=== PATIENT | male | born 2000 | race Caucasian/White ===

== ENCOUNTER 2023-10-30 11:56 | Emergency (ER) | payer SELFPAY ==
[~2023-10-30] VITALS: Ht 165.1 cm; Wt 91.9 kg
[2023-10-30 13:06] LABS: Basophils # (auto) 0.1 10 ^3/uL (0-0.2); Basophils % (auto) 0.7 % (0.0-2.0); Eosinophils # (auto) 0.5 10 ^3/uL (0-0.8); Eosinophils % (auto) 6.7 % (0.0-7.0); Hemoglobin 16.2 g/dL (13.5-17.5); Lymphocytes # (auto) 1.3 10 ^3/uL (0.4-5.4); Lymphocytes % (auto) 17.4 % (10.0-50.0); Mean Corpuscular Hemoglobin 29.2 pg (28.0-32.0); Mean Corpuscular Hgb Conc. 34.5 g/dL (32.0-36.0); Mean Corpuscular Volume 84.8 fL (80.0-100.0); Monocytes # (auto) 0.6 10 ^3/uL (0-1.3); Monocytes % (auto) 8.4 % (0.0-12.0); Neutrophils # (auto) 5.1 10 ^3/uL (1.6-8.6); Neutrophils % (auto) 66.8 % (37.0-80.0); Nucleated Red Blood Cells % 0.6 %; Red Blood Cells 5.54 10^6/uL (4.5-5.90); Red Cell Distribution Width 13.5 % (11.8-14.3); White Blood Cell 7.6 10^3/uL (4.4-10.8)
[2023-10-30 13:14] LABS: Alanine Aminotransferase 26 U/L (7-40); Alkaline Phosphatase 64 U/L (46-116); Anion Gap 4 (5-15); Aspartate Aminotransferase 18 U/L (13-40); BUN/Creatinine Ratio 11.6 (10.0-20.0); Bilirubin, Total 0.6 mg/dL (0.2-1.0); Blood Urea Nitrogen 10 mg/dL (9-23); Calcium 10.8 mg/dL (8.7-10.4); Carbon Dioxide 30 mmol/L (20-30); Chloride 107 mmol/L (98-107); Glucose 97 mg/dL (74-106); Lipase 37 U/L (12-53); Potassium 4.2 mmol/L (3.5-5.1); Sodium 141 mmol/L (136-145); Total Protein 7.6 g/dL (5.7-8.2)
[2023-10-30 13:26] LABS: INR 1.18 (0.9-1.15); Prothrombin Time 12.4 sec (9.3-11.8)
[2023-10-30] MEDS ORDERED: HYD25TP PR (15:37)
[2023-10-30] MEDS ORDERED: DOCU-94 PO (15:37)
[2023-10-30 16:08] VITALS: BP 148/87; PULSE 61; RESP 16; TEMP 98.4; O2SAT 98
== END 2023-10-30 16:13 | disposition home or self-care (01) ==
LOC: ER 11:59
DX: K64.4 Residual hemorrhoidal skin tags (principal); Z79.899 Other long term (current) drug therapy
CPT/HCPCS: 36415; 74176; 80053; 83605; 83690; 84484; 85025; 85610; 85730; 87040

== ENCOUNTER 2023-11-11 07:07 | Emergency (ER) | payer OTHER ==
[~2023-11-11] VITALS: Ht 165.1 cm; Wt 90.0 kg
[~2023-11-11 07:07] MED LIST: DOCU-94 PO; HYD25TP PR
[2023-11-11] MEDS ORDERED: MECL25CH38 PO (09:13)
[2023-11-11 10:22] LABS: Urine Bacteria None Seen /hpf (None Seen)
[2023-11-11 10:42] VITALS: BP 122/72; PULSE 54; RESP 18; TEMP 97.9; O2SAT 99
[2023-11-11 10:54] LABS: Urine Blood Negative /uL (Negative); Urine Clarity Turbid (Clear); Urine Color Yellow (Yellow); Urine Mucus FEW (None Seen); Urine Protein, UAD 1+ (Negative); Urine Specific Gravity 1.025 (1.001-1.035); Urine Urobilinogen Normal (Negative); Urine WBC 4 /hpf (0 - 3)
== END 2023-11-11 10:48 | disposition home or self-care (01) ==
LOC: ER 07:07
DX: G90.9 Disorder of the autonomic nervous system, unspecified (principal); Z79.899 Other long term (current) drug therapy
CPT/HCPCS: 36415; 70450; 81001; 82962; 84484